=== PATIENT | male | born 1980 | race Caucasian/White ===

== ENCOUNTER 2017-02-27 21:43 | Emergency (ER) | payer OTHER ==
[2017-02-27 21:52] VITALS: BP 120/71
--- NOTE | 2017-02-27 23:27 | ED Physician Documentation ---
PD HPI UPPER EXT INJURY - Stated complaint Stated Complaint: LT FINGER LAC - Chief complaint Chief Complaint: Laceration - History obtained from History obtained from: Patient - History of Present Illness Location: Left, Finger Type of injury: Laceration Where injury occurred: Home Timing - onset: Today Improved by: Rest Associated symptoms: No: Weakness, Numbness, Tingling, Swelling, Discolored - Additonal information Additional information: sustained laceration to left second digit when he was using a knife to cut television cables. patient is right-hand dominant. Review of Systems Skin: reports: Laceration (s) Neurologic: denies: Focal weakness, Numbness PD PAST MEDICAL HISTORY - Past Medical History Past Medical History: No - Past Surgical History Past Surgical History: Yes Ortho: ACL reconstruction - Present Medications Home Medications: Ambulatory Orders Medication Instructions Recorded Confirmed Omeprazole [PriLOSEC] 20 mg PO DAILY 02/27/17 02/27/17 - Allergies Allergies/Adverse Reactions: Allergies Allergy/AdvReac Type Severity Reaction Status Date / Time No Known Drug Allergies Allergy Verified 04/24/16 19:50 - Social History Does the pt smoke?: No Smoking Status: Never smoker Does the pt drink ETOH?: No Does the pt have substance abuse?: No - Immunizations Immunizations are current?: Yes PD ED PE NORMAL - Vitals Vital signs reviewed: Yes - General General: Alert and oriented X 3, No acute distress, Well developed/nourished - Extremities Extremities: Normal ROM s pain - Neuro Neuro: No motor deficit, No sensory deficit PD ED PE EXPANDED - Extremities Extremities: Other (1.5 cm length laceration to dorsal surface left second finger. ROM intact including full flexion and extension with isolation of MCP, PIP, and DIP joints. LTS intact distally, all surfaces. full extension strength) Results - Vitals Vitals: Oxygen O2 Source Nasal cannula Procedures - Laceration (location) Finger left Length in cm: 1.5 Wound type: Linear Neurovascular status: Sensory intact, Motor intact, Vascular intact Tendon involvement: Tendon intact Anesthesia: Lidocaine 1% Wound Preparation: Chlorhexadine Skin layer closure: Nylon, Running, Size #-0 - enter number (5-0) Other: Patient tolerated well, No complications, Neurovascular intact, Dressing applied Complexity: Simple PD MEDICAL DECISION MAKING - ED course Complexity details: considered differential, d/w patient Departure - Departure Disposition: 01 Home, Self Care Clinical Impression: Laceration Condition: Good Instructions: ED Laceration Hand Follow-Up: [facility] [Provider Group] [facility] [Provider Group] Comments: Follow up with your primary care provider in 1 week for removal of sutures. Discharge Date/Time: 02/28/17 00:10
[2017-02-27] MEDS ORDERED: LIDOCAINE 1% 2 ML VIAL ONE (23:33)
[2017-02-27] MEDS ORDERED: BACITRACIN OINT TOP STA (23:51)
== END 2017-02-28 00:10 | disposition home or self-care (01) ==
LOC: ED 21:43
DX: S61.211A Laceration without foreign body of left index finger without damage to nail, initial encounter (principal); W26.0XXA Contact with knife, initial encounter; Y93.89 Activity, other specified; Y92.009 Unspecified place in unspecified non-institutional (private) residence as the place of occurrence of the external cause
CPT/HCPCS: 12001; 99282; 99283

== ENCOUNTER 2017-08-22 09:49 | Outpatient (CLI) | payer OTHER ==
--- NOTE | 2017-08-22 16:18 | MRI Report ---
EXAM: LEFT KNEE MRI WITHOUT CONTRAST EXAM DATE: 08/22/2017 10:26 AM. CLINICAL HISTORY: Left knee pain. Previous arthroscopic surgery for medial meniscal debridement. COMPARISON: None. TECHNIQUE: Multiplanar, multisequence T1-weighted and fluid-sensitive sequences of the knee without c ontrast. Other: None. FINDINGS: Bones and Articular Cartilage: Marginal osteophytes at the femoral condyles, tibial plateau, and eaton lla. Grade 2 chondromalacia at the lateral tibial plateau. Mild subchondral marrow edema at the poste rolateral aspect of the lateral tibial plateau. Grade 2-3 chondromalacia at the lateral femoral condy le. No patellar subluxation. Probable small bone island at the distal femoral diaphysis. Medial Meniscus: Minimal blunting at the free edge of the anterior horn and body which may be due to degenerative fraying and/or previous partial meniscectomy. Lateral Meniscus: A majority of the posterior horn and body is absent. No definite tear within the re maining lateral meniscus. Cruciate Ligaments: The anterior and posterior cruciate ligaments are intact. Collateral Ligaments: The medial collateral and lateral collateral ligamentous structures are intact. Tendons: The quadriceps, patellar, semimembranosus, and popliteus tendons are unremarkable. Musculature: No edema or fatty atrophy. Other: Very small joint effusion. No popliteal cyst. No loose bodies. The medial and lateral retinacu la are intact. Scar tissue within the infrapatellar fat pad. IMPRESSION: 1. Tricompartmental osteophytosis. 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 2. Minimal blunting at the free edge of the anterior horn and body of the medial meniscus which may b e due to degenerative fraying and/or previous partial meniscectomy. 3. Absence of a majority of the posterior horn and body of the lateral meniscus which may be due to d egeneration and/or previous partial meniscectomy. No definite tear within the remaining lateral menis cus. 4. Very small joint effusion. 5. Scar tissue within the infrapatellar fat pad. [facility] MUSCULOSKELETAL RADIOLOGY SECTION Referring Provider Line: [phone] SITE ID: [id number]
== END 2017-08-22 09:50 | disposition home or self-care (01) ==
LOC: DI 09:49
PROVIDERS: ATTEND Physician Assistant
DX: M94.262 Chondromalacia, left knee (principal); M25.762 Osteophyte, left knee; M25.462 Effusion, left knee